=== PATIENT | female | born 1960 | race African-American/Black ===

== ENCOUNTER 2017-07-11 11:05 | Emergency (ER) | payer BC ==
[2017-07-11 12:00] LABS: Absolute Lymphocytes (CBC) 1.4 K/uL (0.7-4.9); Absolute Monocytes 0.7 K/uL (0.1-1.3); Absolute Neutrophil 3.4 K/uL (1.8-8.0); Basophils % 0.4 % (0-1.3); Eosinophils % 3.1 % (0-4.4); Hematocrit 37.6 % (36.0-45.0); Lymphocytes % 24.6 % (15.3-44.8); MCH 26.4 pg (27.0-35.0); MCV 82.2 fL (80-100); MPV 7.6 fL (7.6-11.3); Monocytes % 12.6 % (3.3-12.3); RBC Red Blood Cell Count 4.57 M/uL (3.86-4.86)
[2017-07-11 12:04] LABS: Protime INR 1.13
[2017-07-11 12:09] LABS: Potassium 3.3 mEq/L (3.6-5.0)
[2017-07-11] MEDS ORDERED: ACETAMINOPHEN 500 MG TAB ONE (12:11)
[2017-07-11 12:15] LABS: Albumin 3.8 g/dL (3.2-5.5); Bilirubin Direct 0.1 mg/dL (0-0.2); Bilirubin Total 0.5 mg/dL (0.3-1.2); Magnesium 1.8 mg/dL (1.8-2.5); Protein, Total 7.3 g/dL (6.0-8.3)
--- NOTE | 2017-07-11 12:16 | RAD REPORT ---
EXAM DESCRIPTION: RAD - Chest Single View - 07/11/2017 12:05 pm CLINICAL HISTORY: Syncope, headache COMPARISON: 06/08/2015 FINDINGS: Portable technique limits examination quality. The lungs are grossly clear. The heart is normal in size. No displaced fractures. IMPRESSION: No acute intrathoracic process suspected.
--- NOTE | 2017-07-11 12:17 | RAD REPORT ---
EXAM DESCRIPTION: CT - Head Brain Wo Cont - 07/11/2017 11:50 am CLINICAL HISTORY: Syncope, headache COMPARISON: 06/08/2015 TECHNIQUE: All CT scans are performed using dose optimization technique as appropriate and may inclu de automated exposure control or mA/KV adjustment according to patient size. FINDINGS: No intracranial hemorrhage, hydrocephalus or extra-axial fluid collection.No areas of brai n edema or evidence of midline shift. The paranasal sinuses and mastoids are clear. The calvarium is intact. IMPRESSION: No acute intracranial abnormality.
--- NOTE | 2017-07-11 12:17 | EKG ---
Test Date: 2017-07-11 Test Time: 11:17:52 Patient Access Manager: TERELL MEASUREMENT RESULTS: Intervals: Rate: 75 NM: 142 QRSD: 86 QT: 390 QTc: 435 [place]: P: 63 NM: 142 QRS: 49 T: 56 INTERPRETIVE STATEMENTS: Normal sinus rhythm Normal ECG Compared to ECG 06/08/2015 13:34:21 No significant changes Electronically Signed On 07-11-17 12:16:44 CDT by Jamel Wills
[2017-07-11 12:18] LABS: CKMB Creatine Kinase MB 1.1 ng/ml (0.3-4.0)
[2017-07-11] MEDS ORDERED: NA CHLORIDE 0.9% 1,000 ML ONE (13:04)
[2017-07-11] MEDS ORDERED: LORazepam 2 MG/ML VIAL ONE (13:44)
--- NOTE | 2017-07-11 14:29 | RAD REPORT ---
EXAM DESCRIPTION: MRI - Brain Wo Cont - 07/11/2017 2:12 pm CLINICAL HISTORY: Dizziness, syncope, vertigo. COMPARISON: 07/11/2017 CT head TECHNIQUE: Multi-sequence, multiplanar MR imaging of the brain was performed without contrast. FINDINGS: No intracranial hemorrhage, hydrocephalus or extra-axial fluid collections. No edema or sh ift of midline structures. No findings to suspect brain mass. DWI is negative for acute CVA. Midline structures are normally formed. Mild mucoperiosteal thickening affects the left maxillary antrum, left ethmoid air cells and left fro ntal sinus. The paranasal sinuses and mastoids are otherwise clear. IMPRESSION: No acute or concerning intracranial abnormalities. Mild left-sided paranasal sinus disease.
[2017-07-11] MEDS ORDERED: MECLIZINE HCL 12.5 MG TAB ONE (14:53)
[2017-07-11] MEDS ORDERED: POTASSIUM CL SA 10 MEQ TAB PO ONE (14:53)
--- NOTE | 2017-07-11 15:17 | EDPHYS ---
Physician Documentation [facility] Name: Pippa Cardona Age: 56 yrs Sex: Female : 1960 Arrival Date: 07/11/2017 Time: 11:09 Bed 14 Private MD: ED Physician Reji Renee HPI: 07/11 13:26 This 56 yrs old Black Female presents to ER via EMS with complaints of syncope. kb 13:26 The patient has experienced syncope, lost consciousness. Onset: The symptoms/episode kb began/occurred just prior to arrival. Duration: This was a single episode. Context: the episode(s) was witnessed, by co-worker(s), occurred at work, occurred while the patient was sitting, Just prior to the episode the patient experienced headache. Associated injury: The patient did not suffer any apparent associated injury. Associated signs and symptoms: Pertinent positives: dizziness, headache. Current symptoms: headache, that is moderate. The patient has experienced a previous episode, approximately 2 years ago. The patient has not recently seen a physician. Pt states she was sitting on the floor, developed a headache and then had a syncopal episode. States she gets dizzy when she tries to hold her head up. Had same symptoms 2 years ago, was seen here and followed up with PCP. Symptoms went away without intervention.. 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 - Social history:: Smoking status: Patient/guardian denies using tobacco. ROS: 13:11 Constitutional: Negative for fever, chills, and weight loss, Eyes: Negative for injury, kb pain, redness, and discharge, ENT: Negative for injury, pain, and discharge, Neck: Negative for injury, pain, and swelling, Respiratory: Negative for shortness of breath, cough, wheezing, and pleuritic chest pain, Abdomen/GI: Negative for abdominal pain, nausea, vomiting, diarrhea, and constipation, Back: Negative for injury and pain, : Negative for injury, bleeding, discharge, and swelling, MS/Extremity: Negative for injury and deformity, Skin: Negative for injury, rash, and discoloration. 13:11 Cardiovascular: Positive for chest pain, Negative for edema, orthopnea, palpitations, paroxysmal nocturnal dyspnea. 13:11 Neuro: Positive for syncope, Negative for altered mental status, dizziness, gait disturbance, headache, hearing loss, loss of consciousness, numbness, seizure activity, speech changes, near syncope, tingling, tinnitus, tremor, visual changes, weakness. Exam: 13:11 Constitutional: This is a well developed, well nourished patient who is awake, alert, kb and in no acute distress. Head/Face: Normocephalic, atraumatic. Eyes: Pupils equal round and reactive to light, extra-ocular motions intact. Lids and lashes normal. Conjunctiva and sclera are non-icteric and not injected. Cornea within normal limits. Periorbital areas with no swelling, redness, or edema. ENT: Nares patent. No nasal discharge, no septal abnormalities noted. Tympanic membranes are normal and external auditory canals are clear. Oropharynx with no redness, swelling, or masses, exudates, or evidence of obstruction, uvula midline. Mucous membranes moist. Neck: Trachea midline, no thyromegaly or masses palpated, and no cervical lymphadenopathy. Supple, full range of motion without nuchal rigidity, or vertebral point tenderness. No Meningismus. Chest/axilla: Normal chest wall appearance and motion. Nontender with no deformity. No lesions are appreciated. Cardiovascular: Regular rate and rhythm with a normal S1 and S2. No gallops, murmurs, or rubs. Normal PMI, no JVD. No pulse deficits. Respiratory: Lungs have equal breath sounds bilaterally, clear to auscultation and percussion. No rales, rhonchi or wheezes noted. No increased work of breathing, no retractions or nasal flaring. Abdomen/GI: Soft, non-tender, with normal bowel sounds. No distension or tympany. No guarding or rebound. No evidence of tenderness throughout. Back: No spinal tenderness. No costovertebral tenderness. Full range of motion. Skin: Warm, dry with normal turgor. Normal color with no rashes, no lesions, and no evidence of cellulitis. MS/ Extremity: Pulses equal, no cyanosis. Neurovascular intact. Full, normal range of motion. Vital Signs: 11:14 BP 123 / 75; Pulse 71; Resp 18; Temp 97.8; Pulse Ox 100% on R/A; Weight 83.91 kg; ph Height 5 ft. 3 in. (160.02 cm); 12:17 BP 117 / 74; Pulse 71; Resp 18; Pulse Ox 99% on R/A; ph 13:00 BP 124 / 69 Supine; Pulse 67; ph 13:00 BP 146 / 89 Sitting; Pulse 83; ph 14:00 BP 126 / 78; Pulse 74; Resp 18; Pulse Ox 99% on R/A; ph 15:30 BP 122 / 71; Pulse 72; Resp 16; Temp 97.9; Pulse Ox 99% on R/A; ph 11:14 Body Mass Index 32.77 (83.91 kg, 160.02 cm) ph MDM: 11:15 Patient medically screened. kb 13:11 Data reviewed: vital signs, nurses notes. Data interpreted: Pulse oximetry: on room air kb is 99 %. Interpretation: normal. 13:33 ED course: Discussed diagnostic results with pt. Pt does not want to stay in the [facility] for admission. Will get MRI of the brain. Discussed pt condition and diagnostics with ERP. 13:59 ED course: Pt requested ativan for MRI. Reports claustrophobia . kb 15:12 Counseling: I had a detailed discussion with the patient and/or guardian regarding: the historical points, exam findings, and any diagnostic results supporting the discharge/admit diagnosis, lab results, radiology results, the need for outpatient follow up, a neurologist, to return to the emergency department if symptoms worsen or persist or if there are any questions or concerns that arise at home. 07/11 11:16 Order name: Basic Metabolic Panel; Complete Time: 12:18 kb 07/11 11:16 Order name: BNP; Complete Time: 12:29 kb 07/11 11:16 Order name: CBC with Diff; Complete Time: 12:11 kb 07/11 11:16 Order name: Ckmb; Complete Time: 12:18 kb 07/11 11:16 Order name: CPK; Complete Time: 12:18 kb 07/11 11:16 Order name: LFT's; Complete Time: 12:18 kb 07/11 11:16 Order name: Magnesium; Complete Time: 12:18 kb 07/11 11:16 Order name: PT-INR; Complete Time: 12:11 kb 07/11 11:16 Order name: Ptt, Activated; Complete Time: 12:11 kb 07/11 11:16 Order name: Troponin (emerg Dept Use Only); Complete Time: 12:16 kb 07/11 11:16 Order name: XRAY Chest (1 view); Complete Time: 12:18 kb 07/11 11:25 Order name: CT Head Brain wo Cont; Complete Time: 12:18 kb 07/11 13:26 Order name: MRI - Brain Wo Cont; Complete Time: 14:34 kb 07/11 11:16 Order name: EKG; Complete Time: 11:17 kb 07/11 11:16 Order name: Cardiac monitoring; Complete Time: 12:15 kb 07/11 11:16 Order name: EKG - Nurse/Tech; Complete Time: 12:16 kb 07/11 11:16 Order name: IV Saline Lock; Complete Time: 12:16 kb 07/11 11:16 Order name: Labs collected and sent; Complete Time: 12:16 kb 07/11 11:16 Order name: O2 Per Protocol; Complete Time: 12:16 kb 07/11 11:16 Order name: O2 Sat Monitoring; Complete Time: 12:16 kb 07/11 11:16 Order name: Urine Dipstick-Ancillary (obtain specimen); Complete Time: 14:44 kb 07/11 11:25 Order name: Orthostatics; Complete Time: 13:05 kb Administered Medications: 12:15 Drug: Tylenol 1000 mg Route: PO; ph 13:00 Follow up: Response: No adverse reaction; Pain is decreased ph 14:00 Drug: Ativan 0.5 mg Route: IVP; Site: left antecubital; ph 14:30 Follow up: Response: No adverse reaction ph 15:31 Drug: Potassium Chloride 20 mEq Route: PO; ph 16:00 Follow up: Response: No adverse reaction ph 15:31 Drug: Meclizine 50 mg Route: PO; ph 16:00 Follow up: Response: No adverse reaction ph Disposition: 07/11/17 15:17 Discharged to Home. Impression: Syncope and collapse. - Condition is Stable. - Discharge Instructions: Syncope, [id number]. - Prescriptions for Meclizine 25 mg Oral Tablet - take 1 tablet by ORAL route every 8 hours As needed; 30 tablet. - Medication Reconciliation Form, Thank You Letter, Antibiotic Education, Prescription Opioid Use, Work release form, Family Work Release form. - Follow up: Emergency Department; When: As needed; Reason: Worsening of condition. Follow up: Private Physician; When: 2 - 3 days; Reason: Recheck today's complaints, Continuance of care, Re-evaluation by your physician. Addendum: 07/13/2017 10:50 Co-signature as Attending Physician, Reji Renee MD I agree with the assessment and w a plan of care. Signatures: Dispatcher [employer] EDXiao Serna, HIRA-C HIRA-Tia Nova RN RN Reji Renee MD MD nc Corrections: (The following items were deleted from the chart) 07/11 16:26 15:17 07/11/2017 15:17 Discharged to Home. Impression: Syncope and collapse. Condition ph is Stable. Forms are Medication Reconciliation Form, Thank You Letter, Antibiotic Education, Prescription Opioid Use. Follow up: Emergency Department; When: As needed; Reason: Worsening of condition. Follow up: Private Physician; When: 2 - 3 days; Reason: Recheck today's complaints, Continuance of care, Re-evaluation by your physician. kb
--- NOTE | 2017-07-11 15:17 | ER ---
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 Transition of care: patient was not received from another setting of care. Onset of symptoms was July 11, 2017. Initial Sepsis Screen: Does the patient meet any 2 criteria? No. Patient's initial sepsis screen is negative. Does the patient have a suspected source of infection? No. Patient's initial sepsis screen is negative. Care prior to arrival: Medication(s) given: Normal saline infusion, 500 mL, IV initiated. 20 GA, in the left antecubital area, Glucose check: 100. 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 - Social history:: Smoking status: Patient/guardian denies using tobacco. Screenin:18 Abuse screen: Denies threats or abuse. Denies injuries from another. Nutritional ph screening: No deficits noted. Tuberculosis screening: No symptoms or risk factors identified. Fall Risk Fall in past 12 months (25 points). No secondary diagnosis (0 pts). IV access (20 points). Ambulatory Aid- None/Bed Rest/Nurse Assist (0 pts). Gait- Normal/Bed Rest/Wheelchair (0 pts) Mental Status- Oriented to own ability (0 pts). Total Givens Fall Scale indicates High Risk Score (45 or more points). Fall prevention measures have been instituted. Side Rails Up X 2 Placed Close to Nursing Station Frequent Obs/Assessments Occuring Family Present and informed to notify staff if the need to leave the bedside As available patient and family educated on Fall Prevention Program and Strategies. Assessment: 11:30 General: Appears in no apparent distress. comfortable, well groomed, Behavior is calm, ph cooperative, appropriate for age. Pain: Complains of pain in head and chest. Neuro: Level of Consciousness is awake, obeys commands, Oriented to person, place, time, situation, Reports headache Denies blurred vision diplopia. Cardiovascular: Reports chest pain, fatigue, lightheadedness, syncope, Denies nausea, shortness of breath, vomiting, Capillary refill < 3 seconds Patient's skin is warm and dry. Chest pain quality is pressure, is located in left anterior chest wall began 30 minutes prior to arrival. Respiratory: Airway is patent Respiratory effort is even, unlabored, Respiratory pattern is regular, symmetrical. GI: Reports diarrhea, yesterday Patient currently denies abdominal pain, nausea, vomiting. : No signs and/or symptoms were reported regarding the genitourinary system. Derm: Skin is intact, is healthy with good turgor, Skin is pink, warm \\T\\ dry. Musculoskeletal: Circulation, motion, and sensation intact. Range of motion: intact in all extremities. 12:17 Reassessment: Patient appears in no apparent distress at this time. Patient and/or ph family updated on plan of care and expected duration. Pain level reassessed. Patient is alert, oriented x 3, equal unlabored respirations, skin warm/dry/pink. Pt reports that chest pain has resolved, c/o headache at this time, ERP notified, see MAR. 13:13 Reassessment: Patient appears in no apparent distress at this time. Patient and/or ph family updated on plan of care and expected duration. Pain level reassessed. Patient is alert, oriented x 3, equal unlabored respirations, skin warm/dry/pink. Pt resting quietly at this time, family at bedside. 13:55 Reassessment: Patient appears in no apparent distress at this time. Patient and/or ph family updated on plan of care and expected duration. Pain level reassessed. Patient is alert, oriented x 3, equal unlabored respirations, skin warm/dry/pink. Pt to be taken to MRI, reports that she is claustrophobic, states, " I almost passed out during the cat scan." ERP notified see MAY. 14:02 Reassessment: Patient appears in no apparent distress at this time. Patient and/or ph family updated on plan of care and expected duration. Pain level reassessed. Patient is alert, oriented x 3, equal unlabored respirations, skin warm/dry/pink. Pt assisted to bedside commode, urine sample obtained, taken to MRI via wheelchair. 15:32 Reassessment: Patient appears in no apparent distress at this time. Patient and/or ph family updated on plan of care and expected duration. Pain level reassessed. Patient is alert, oriented x 3, equal unlabored respirations, skin warm/dry/pink. Awaiting completion of IV fluids before discharge Patient denies pain at this time. Vital Signs: 11:14 BP 123 / 75; Pulse 71; Resp 18; Temp 97.8; Pulse Ox 100% on R/A; Weight 83.91 kg; ph Height 5 ft. 3 in. (160.02 cm); 12:17 BP 117 / 74; Pulse 71; Resp 18; Pulse Ox 99% on R/A; ph 13:00 BP 124 / 69 Supine; Pulse 67; ph 13:00 BP 146 / 89 Sitting; Pulse 83; ph 14:00 BP 126 / 78; Pulse 74; Resp 18; Pulse Ox 99% on R/A; ph 15:30 BP 122 / 71; Pulse 72; Resp 16; Temp 97.9; Pulse Ox 99% on R/A; ph 11:14 Body Mass Index 32.77 (83.91 kg, 160.02 cm) ph ED Course: 11:09 Patient arrived in ED. ph 11:14 Triage completed. ph 11:14 Xiao Amezquita FNP-C is PHCP. kb 11:14 Reji Renee MD is Attending Physician. kb 11:17 Arm band placed on. ph 11:18 Patient has correct armband on for positive identification. Placed in gown. Bed in low ph position. Call light in reach. Side rails up X 1. front desk monitor on. Pulse ox on. NIBP on. Warm blanket given. 11:32 EKG done, by ophthalmic tech. reviewed by Xiao SMALL. at1 11:37 Note: resource development director went to get patient, blood draw needed before taking patient for head ct .vr 11:51 CT Head Brain wo Cont In Process Unspecified. EDMS 12:03 Tia Duque, RN is Primary Nurse. ph 12:06 XRAY Chest (1 view) In Process Unspecified. EDMS 12:06 X-ray completed. Portable x-ray completed in exam room. Patient tolerated procedure jf well. 12:19 Initial lab(s) drawn, by me, sent to lab. Maintain EMS IV. Good blood return noted. mh5 Site clean \\T\\ dry. 13:52 Patient moved to MRI via wheelchair. ka 14:03 MRI - Brain Wo Cont In Process Unspecified. EDMS 14:11 MRI completed. Patient tolerated well. Patient moved back from MRI. ka 16:25 No provider procedures requiring assistance completed. IV discontinued, intact, ph bleeding controlled, No redness/swelling at site. Pressure dressing applied. Administered Medications: 12:15 Drug: Tylenol 1000 mg Route: PO; ph 13:00 Follow up: Response: No adverse reaction; Pain is decreased ph 14:00 Drug: Ativan 0.5 mg Route: IVP; Site: left antecubital; ph 14:30 Follow up: Response: No adverse reaction ph 15:31 Drug: Potassium Chloride 20 mEq Route: PO; ph 16:00 Follow up: Response: No adverse reaction ph 15:31 Drug: Meclizine 50 mg Route: PO; ph 16:00 Follow up: Response: No adverse reaction ph Outcome: 15:17 Discharge ordered by . kb 16:26 Patient left the ED. ph 16:26 Discharged to home ambulatory, with family. ph 16:26 Condition: good 16:26 Discharge instructions given to patient, Instructed on discharge instructions, follow up and referral plans. medication usage, Demonstrated understanding of instructions, follow-up care, medications, Prescriptions given X 1. Signatures: Dispatcher [employer] EDMS Xiao Amezquita, STACI INIGUEZ-Denise Pizarro Amanda, incoming inspector EKG Tat1 Tia Duque, RN RN Beverly Salazar Maria [facility] Abdias Martinez
== END 2017-07-11 16:26 | disposition home or self-care (01) ==
LOC: ER 11:05
DX: R55 Syncope and collapse (principal); I10 Essential (primary) hypertension
CPT/HCPCS: 36415; 70450; 70551; 71045; 80048; 80076; 82550; 82553; 83735; 83880; 84484; 85025; 85610; 85730; 93005; 96374; 99285; J7030

== ENCOUNTER 2020-01-06 13:42 | Emergency (ER) | payer BC ==
[2020-01-06 14:22] LABS: Absolute Lymphocytes (CBC) 1.5 K/uL (0.7-4.9); Basophils % 0.4 % (0-1.3); Hematocrit 36.6 % (36.0-45.0); Lymphocytes % 20.8 % (15.3-44.8); MPV 8.1 fL (7.6-11.3); RBC Red Blood Cell Count 4.43 M/uL (3.86-4.86)
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
--- OUTSIDE RECORDS SUMMARY | 2020-01-06 14:23 | XMS REPORT | Summary of Care ---
:1960 Author Organization [facility] Address [address] [place] [address] Care Team Providers Name Role Phone MD Lane Primary Care Provider Reason for Visit Reason Comments Appointment Encounter Details Date Type Department Care Team Description 01/06/2020 Telephone [facility] Family Medicine Beltran Carr MD Appointment - [address] [place] [address] [place] [address] [phone] Allergies No Known Allergiesdocumented as of this encounter (statuses as of 01/06/2020) Medications Medication Sig Dispensed Refills Start Date End Date Status moxifloxacin 0.5 % Place 1 Drop in 3 mL 0 04/28/2018 Active ophthalmic left eye 3 dropsIndications: (three) times Bacterial conjunctivitis daily. of left eye amoxicillin 500 mg Take 1 tablet by 30 tablet 0 12/09/2018 Active tabletIndications: mouth 3 (three) Pharyngitis, unspecified times daily. etiology LISINOPRIL-HYDROCHLOROTH Take 1 tablet by 30 tablet 0 12/21/19 20 Active IAZIDE 20-12.5 mg per mouth once daily tabletIndications: Essential hypertension, benign documented as of this encounter (statuses as of 01/06/2020) Active Problems Problem Noted Date Abdominal or pelvic swelling, mass or lump, unspecifie d site 04/24/2014 Screening breast examination 04/24/2014 Essential hypertension, benign 04/24/2014 Tubal ligation status 04/24/2014 Hypercholesteremia 04/24/2014 Need for Tdap vaccination 04/24/2014 documented as of this encounter (statuses as of 01/06/2020) Social History Tobacco Use Types Packs/Day Years Used Date Never Smoker Smokeless Tobacco: Never Used Alcohol Use Drinks/Week oz/Week Comments No Sex Assigned at Date Recorded Not on file documented as of this encounter Last Filed Vital Signs Not on filedocumented in this encounter Miscellaneous Notes Telephone Encounter - Bella Don MA - 01/06/2020 1:31 PM CDTSpoke with patient and she is currently on her way to the ER for Chest pain. elephone Encounter - Julius Jorge RN - 01/06/2020 1:00 PM CDTRouted to wrong clinic. Contacted sender to send to correct clinic. elephone Encounter - Jamila Rincon - 01/06/2020 12:24 PM CDTPatient states she needed a sooner appointment to follow up chest pain ,please advise patient [phone] signed by Jamila Rincon at 01/06/2020 12:36 PM CDTdocumented in this encounter Plan of Treatment Date Type Specialty Care Team Description 01/10/2020 Office Visit Family Medicine Beltran Sherman MD [address] [place] [address] [phone] Health Maintenance Due Date Last Done Comments HEPATITIS C (HCV) SCREEN 1960 DTaP,Tdap,and Td Vaccines (1 - 1981 Tdap) Breast Cancer Screening 2002 (MAMMOGRAM) COLON CANCER SCREENING ANNUAL 2012 FIT/FOBT COLON CANCER SCREENING FIT DNA 2012 EVERY 3 YEARS COLON CANCER SCREENING 2012 SIGMOIDOSCOPY EVERY 5 YEARS COLONOSCOPY 2012 Colorectal Cancer Screening 2012 Zoster Recombinant Vaccine 2012 (SHINGRIX) (1 of 2) INFLUENZA VACCINE (#1) 2019 PAP SMEAR 01/07/2020 01/06/2017 (Previously completed), 04/22/2014, 12/06/2010 Depression Screening 05/20/2020 05/21/2019 PNEUMOCOCCAL 0-64 YEARS Aged Out No longe r eligible based COMBINED SERIES on patient's age to complete this to [facility] documented as of this encounter Results Not on filedocumented in this encounter Insurance Payer Benefit Plan Subscriber ID Effective Dates Phone Address Type / Group [id number] 2013-Eduardo [phone] [address] PPO/POS [place] t [id number] [place] [address] documented as of this encounter
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
--- OUTSIDE RECORDS SUMMARY | 2020-01-06 14:23 | XMS REPORT | Summary of Care ---
:1960 Author Organization [facility] Address [address] [place] [id number] Care Team Providers Name Role Phone MD Lane Primary Care Provider Reason for Visit Reason Comments Refill Request Encounter Details Date Type Department Care Team Description 12/21/[address] [facility] Beltran Carr MD Refill Request - [address] [place] [address] [place] [phone] Allergies No Known Allergiesdocumented as of this encounter (statuses as of 12/21/2019) Medications Medication Sig Dispensed Refills Start Date End Date Status moxifloxacin 0.5 % Place 1 Drop 3 mL 0 04/28/2018 Active ophthalmic in left eye dropsIndications: 3 (three) Bacterial times daily. conjunctivitis of left eye amoxicillin 500 mg Take 1 30 tablet 0 12/09/2018 Active tabletIndications: tablet by Pharyngitis, mouth 3 unspecified etiology (three) times daily. LISINOPRIL-HYDROCHLOR Take 1 30 tablet 0 12/21/2019 Active OTHIAZIDE 20-12.5 mg tablet by per mouth once tabletIndications: daily Essential hypertension, benign LISINOPRIL-HYDROCHLOR Take 1 90 tablet 0 09/22/2019 020 Discontinued OTHIAZIDE 20-12.5 mg tablet by per mouth once tabletIndications: daily Essential hypertension, benign documented as of this encounter (statuses as of 12/21/2019) Active Problems Problem Noted Date Abdominal or pelvic swelling, mass or lump, unspecifie d site 04/24/2014 Screening breast examination 04/24/2014 Essential hypertension, benign 04/24/2014 Tubal ligation status 04/24/2014 Hypercholesteremia 04/24/2014 Need for Tdap vaccination 04/24/2014 documented as of this encounter (statuses as of 12/21/2019) Social History Tobacco Use Types Packs/Day Years Used Date Never Smoker Smokeless Tobacco: Never Used Alcohol Use Drinks/Week oz/Week Comments No Sex Assigned at Date Recorded Not on file documented as of this encounter Last Filed Vital Signs Not on filedocumented in this encounter Plan of Treatment Health Maintenance Due Date Last Done Comments [...] on patient's age to complete this to pic documented as of this encounter Results Not on filedocumented in this encounter Visit Diagnoses Diagnosis Essential hypertension, benign documented in this encounter Insurance Payer Benefit Plan Subscriber ID Effective Dates Phone Address Type / Group BCBS OF BCBS [facility] [id number] 2013-Eduardo [phone] [address] [place] P[place] t [id number] [place] [address] documented as of this encounter
[2020-01-06 14:43] LABS: ALT/SGPT 18 U/L (12-78); AST/SGOT 16 U/L (15-37); Albumin 3.6 g/dL (3.4-5.0); Alkaline Phosphatase 60 U/L (45-117); BUN Blood Urea Nitrogen 12 mg/dL (7-18); Bicarbonate 31 mmol/L (21-32); Bilirubin Direct < 0.1 mg/dL (0-0.2); Bilirubin Total 0.3 mg/dL (0.2-1.0); Glucose Level 94 mg/dL (74-106); NT PRO-BNP 59 pg/mL (<125); Potassium 3.2 mmol/L (3.5-5.1); Protein, Total 7.7 g/dL (6.4-8.2); Sodium Level 142 mmol/L (136-145); Troponin (Emerg Dept Use Only) < 0.02 ng/mL (0.0-0.045)
[2020-01-06 14:53] LABS: Protime INR 1.05
--- NOTE | 2020-01-06 15:09 | RAD REPORT ---
EXAM DESCRIPTION: RAD - Chest Single View - 01/06/2020 2:57 pm CLINICAL HISTORY: CHEST PAIN COMPARISON: Portable July 2017 TECHNIQUE: AP portable chest image was obtained 01/06/2020 2:57 pm . FINDINGS: Lungs are clear. Heart size is upper normal accentuated by a slightly more shallow inspira tory effort and a more lordotic position. No vascular engorgement. Acute failure or volume overload a re not suspected. No measurable pleural effusion and no pneumothorax. No acute bony abnormality seen. No acute aortic findings suspected. IMPRESSION: No acute cardiopulmonary process. Enlargement of the cardiac silhouette is believed be the affects of portable imaging, shallow inspira tion and slight lordotic positioning.
[2020-01-06] MEDS ORDERED: ONDANSETRON 4 MG/2 ML VIAL ONE (15:21)
[2020-01-06] MEDS ORDERED: MORPHINE 2 MG/ML SYR ONE (15:21)
[2020-01-06] MEDS ORDERED: TRAMADOL HCL 50 MG TAB ONE (15:26)
--- NOTE | 2020-01-06 17:02 | EDPHYS ---
Physician Documentation [facility] Name: Pippa Cardona Age: 59 yrs Sex: Female : 1960 Arrival Date: 01/06/2020 Time: 13:44 Bed 6 Private MD: ED Physician Caio Estrada HPI: 01/05 14:04 This 59 yrs old Black Female presents to ER via Ambulatory with complaints of Chest jmm Pain. 14:04 The patient or guardian reports chest pain that is located primarily in the anterior [facility] chest wall. Onset: gradually. The pain does not radiate. Associated signs and symptoms: Pertinent negatives: cough, shortness of breath, syncope. The chest pain is described as sharp. Duration: The patient or guardian reports a single episode, that is still ongoing. Modifying factors: The symptoms are alleviated by remaining still, the symptoms are aggravated by movement, palpation of area. This is a 59 year old female with a history of htn that presents to the ED with complaints of anterior chest pain which does not radiate. This occurred while the patient was bending over to change a diaper. Pain has been constant since. Denies history of CAD but does have a family history of CAD. Historical: - Allergies: 13:49 No Known Allergies; sv - PMHx: 13:49 Hypertension; sv - PSHx: 13:49 L knee; sv - Immunization history:: Adult Immunizations. - Social history:: Smoking status: . ROS: 14:04 Constitutional: Negative for fever, chills, and weight loss. jm 14:04 Respiratory: Negative for shortness of breath, cough, wheezing, and pleuritic chest pain, Neuro: Negative for headache, weakness, numbness, tingling, and seizure. 14:04 Cardiovascular: Positive for chest pain. 14:04 All other systems are negative. Exam: 14:04 Constitutional: This is a well developed, well nourished patient who is awake, alert, jmm and in no acute distress. Head/Face: atraumatic. Eyes: EOMI, no conjunctival erythema appreciated ENT: Moist Mucus Membranes Neck: Trachea midline, Supple Cardiovascular: Regular rate and rhythm. No edema appreciated Respiratory: Normal respirations, no respiratory distress appreciated 14:04 Abdomen/GI: Non distended, soft Back: Normal ROM Skin: General appearance color normal MS/ Extremity: Moves all extremities, no obvious deformities appreciated, no edema noted to the lower extremities Neuro: Awake and alert, normal gait Psych: Behavior is normal, Mood is normal, Patient is cooperative and pleasant 14:04 Chest/axilla: Palpation: tenderness, that is moderate, of the xyphoid area and mid-sternal area, that totally reproduces the patient's complaints. 15:22 ECG was reviewed by the Attending Physician. [facility] Vital Signs: 13:50 BP 125 / 63; Pulse 68; Resp 24; Temp 97.5(TE); Pulse Ox 100% ; Weight 95.25 kg; Height sv 5 ft. 3 in. (160.02 cm); 14:16 BP 128 / 67; Pulse 65; Resp 20; Pulse Ox 100% ; ll1 15:16 BP 123 / 62; Pulse 64; Resp 20; Pulse Ox 100% on R/A; Pain 9/10; ll1 16:16 BP 117 / 72; Pulse 63; Resp 18; Pulse Ox 100% ; ll1 17:18 BP 122 / 74; Pulse 63; Resp 18; Pulse Ox 100% ; Pain 0/10; ll1 13:50 Body Mass Index 37.20 (95.25 kg, 160.02 cm) sv MDM: 14:04 Patient medically screened. [facility] 16:57 Data reviewed: vital signs, nurses notes. Counseling: I had a detailed discussion with [facility] the patient and/or guardian regarding: the historical points, exam findings, and any diagnostic results supporting the discharge/admit diagnosis, lab results, radiology results, the need for outpatient follow up, to return to the emergency department if symptoms worsen or persist or if there are any questions or concerns that arise at home. ED course: Patient is alert and non toxic in appearance in the ED. Heart Score is 2. Pain is reproduceable. D-dimer is WNL. I do not suspect PE. Patient is advised to follow up with pcp and otherwise given strict return precautions. . 01/05 14:05 Order name: Basic Metabolic Panel; Complete Time: 15: [facility] 01/05 14:05 Order name: CBC with Diff; Complete Time: 15: [facility] 01/05 14:05 Order name: LFT's; Complete Time: 15: [facility] 01/05 14:05 Order name: Magnesium; Complete Time: 15: [facility] 01/05 14:05 Order name: NT PRO-BNP; Complete Time: 15:07 [facility] 01/05 14:05 Order name: PT-INR; Complete Time: 15:07 [facility] 01/05 13:49 Order name: EKG; Complete Time: 13:50 sv 01/05 13:49 Order name: EKG - Nurse/Tech; Complete Time: 13:49 sv 01/05 14:05 Order name: Troponin (emerg Dept Use Only); Complete Time: 15:07 [facility] 01/05 14:05 Order name: XRAY Chest (1 view); Complete Time: 15:11 [facility] 01/05 15:32 Order name: D-Dimer; Complete Time: 16:49 [facility] 01/05 14:05 Order name: Cardiac monitoring; Complete Time: 15:16 [facility] 01/05 14:05 Order name: IV Saline Lock; Complete Time: 15:16 [facility] 01/05 14:05 Order name: Labs collected and sent; Complete Time: 15:16 [facility] 01/05 14:05 Order name: O2 Per Protocol; Complete Time: 15: [facility] 01/05 14:05 Order name: O2 Sat Monitoring; Complete Time: 15:16 jm EC:22 Rate is 71 beats/min. Rhythm is regular. QRS [place] is Normal. WI interval is normal. QRS jmm interval is normal. QT interval is normal. No Q waves. T waves are Normal. No ST changes noted. Reviewed by me. Administered Medications: 15:15 Not Given (Patient Refused): morphine 2 mg IVP once; (PAIN>8) RASS on ADMN: Combtv4, ll1 Very Agttd3, Agttd2, Rstlss1, AlertClm0, Drwsy-1, LtSdtn-2, ModSdtn-3, DpSdtn-4, UnArsble-5 x2 15:15 Not Given (Patient Refused): Zofran (Ondansetron) 4 mg IVP once; over 2 minutes ll1 15:15 Drug: traMADol 50 mg {Note: rass 0.} Route: PO; ll1 17:19 Follow up: Response: No adverse reaction; Pain is decreased; RASS: Alert and Calm (0) ll1 Disposition: 01/06 15:53 Co-signature as Attending Physician, Caio Estrada MD I agree with the assessment and kdr plan of care. Disposition: 01/06/20 17:00 Discharged to Home. Impression: Chest pain, unspecified. - Condition is Stable. - Discharge Instructions: Nonspecific Chest Pain. - Prescriptions for orphenadrine citrate 100 mg Oral Tablet Sustained Release - take 1 tablet by ORAL route 2 times per day As needed; 20 tablet. - Medication Reconciliation Form, Thank You Letter, Antibiotic Education, Prescription Opioid Use, Work release form form. - Follow up: Private Physician; When: 2 - 3 days; Reason: Recheck today's complaints, Continuance of care, Re-evaluation by your physician. Signatures: Dispatcher [employer] [place] Saba, RN RN Caio Ambriz MD MD kdr Mickail, Joel, PA PA jmm Lewis, Lynsay RN RN ll1 Corrections: (The following items were deleted from the chart) 01/05 14:15 14:05 EKG - Nurse/Tech ordered. [facility] 17:20 17:00 01/06/2020 17:00 Discharged to Home. Impression: Chest pain, unspecified. ll1 Condition is Stable. Forms are Medication Reconciliation Form, Thank You Letter, Antibiotic Education, Prescription Opioid Use. Follow up: Private Physician; When: 2 - 3 days; Reason: Recheck today's complaints, Continuance of care, Re-evaluation by your physician. [facility]
--- NOTE | 2020-01-06 17:02 | ER ---
Nurse's Notes [facility] Name: Pippa Cardona Age: 59 yrs Sex: Female : 1960 Arrival Date: 01/06/2020 Time: 13:44 Bed 6 Private MD: Diagnosis: Chest pain, unspecified Presentation: 01/05 13:48 Chief complaint: Patient states: midsternal CP that started today. Reports that the EMS sv came to see her at her job, gave her ASA and pain improved some. Reports that the pain started again. Denies SOB. Coronavirus screen: Client denies travel out of the [place] in the last 14 days. At this time, the client does not indicate any symptoms associated with coronavirus-19. Ebola Screen: No symptoms or risks identified at this time. Risk Assessment: Do you want to hurt yourself or someone else? Patient reports no desire to harm self or others. Onset of symptoms was January 06, 2020. 13:48 Method Of Arrival: Ambulatory sv 13:48 Acuity: ZOEY 3 sv 13:50 Initial Sepsis Screen: Does the patient meet any 2 criteria? RR > 20 per min. No. sv Patient's initial sepsis screen is negative. Does the patient have a suspected source of infection? No. Patient's initial sepsis screen is negative. Historical: - Allergies: 13:49 No Known Allergies; sv - PMHx: 13:49 Hypertension; sv - PSHx: 13:49 L knee; sv - Immunization history:: Adult Immunizations. - Social history:: Smoking status: . Screenin:19 Abuse screen: Denies threats or abuse. Nutritional screening: No deficits noted. ll1 Tuberculosis screening: No symptoms or risk factors identified. Fall Risk IV access (20 points). Total Givens Fall Scale indicates No Risk (0-24 pts). Assessment: 14:17 General: Appears in no apparent distress. Behavior is calm, cooperative, appropriate ll1 for age. Pain: Complains of pain in chest Quality of pain is described as aching, Pain began 1 day ago. Pain: Pain does not radiate. Neuro: No deficits noted. Cardiovascular: Reports chest pain, Heart tones S1 S2 Capillary refill < 3 seconds Clubbing of nail beds is absent JVD Patient's skin is warm and dry. Pulses are all present. Rhythm is sinus rhythm Chest pain is described as mild, quality is pressure, is located in substernal area began 1 day ago episodes are intermittent. Respiratory: Airway is patent Trachea midline Respiratory effort is even, unlabored, Respiratory pattern is regular, symmetrical, Breath sounds are clear bilaterally. Denies cough, shortness of breath. GI: No deficits noted. 15:15 Reassessment: Patient and/or family updated on plan of care and expected duration. Pain ll1 level reassessed. Patient is alert, oriented x 3, equal unlabored respirations, skin warm/dry/pink. 16:15 Reassessment: Patient and/or family updated on plan of care and expected duration. Pain ll1 level reassessed. Patient is alert, oriented x 3, equal unlabored respirations, skin warm/dry/pink. 17:15 Reassessment: Patient and/or family updated on plan of care and expected duration. Pain ll1 level reassessed. Patient is alert, oriented x 3, equal unlabored respirations, skin warm/dry/pink. Vital Signs: 13:50 BP 125 / 63; Pulse 68; Resp 24; Temp 97.5(TE); Pulse Ox 100% ; Weight 95.25 kg; Height sv 5 ft. 3 in. (160.02 cm); 14:16 BP 128 / 67; Pulse 65; Resp 20; Pulse Ox 100% ; ll1 15:16 BP 123 / 62; Pulse 64; Resp 20; Pulse Ox 100% on R/A; Pain 9/10; ll1 16:16 BP 117 / 72; Pulse 63; Resp 18; Pulse Ox 100% ; ll1 17:18 BP 122 / 74; Pulse 63; Resp 18; Pulse Ox 100% ; Pain 0/10; ll1 13:50 Body Mass Index 37.20 (95.25 kg, 160.02 cm) sv Vitals: 16:16 Cardiac Rhythm Assessment Regular Sinus rhythm. ll1 ED Course: 13:44 Patient arrived in ED. rg4 13:47 Arm band placed on. sv 13:48 Triage completed. sv 13:50 Kiran Aguiar PA is PHCP. jmm 13:50 Caio Estrada MD is Attending Physician. jmm 13:51 EKG done, by ED staff, reviewed by Caio Estrada MD. sv 13:52 Noe, Lynsay, RN is Primary Nurse. ll1 14:05 Inserted saline lock: 20 gauge in left antecubital area, using aseptic technique. Blood ll1 collected. 14:19 Patient has correct armband on for positive identification. Bed in low position. Call ll1 light in reach. Side rails up X2. secured entrance monitor on. Pulse ox on. NIBP on. 14:19 Patient maintains SpO2 saturation greater than 95% on room air. ll1 14:57 XRAY Chest (1 view) In Process Unspecified. EDMS 17:19 IV discontinued, intact, bleeding controlled, No redness/swelling at site. Pressure ll1 dressing applied. 17:19 No provider procedures requiring assistance completed. ll1 Administered Medications: 15:15 Not Given (Patient Refused): morphine 2 mg IVP once; (PAIN>8) RASS on ADMN: Combtv4, ll1 Very Agttd3, Agttd2, Rstlss1, AlertClm0, Drwsy-1, LtSdtn-2, ModSdtn-3, DpSdtn-4, UnArsble-5 x2 15:15 Not Given (Patient Refused): Zofran (Ondansetron) 4 mg IVP once; over 2 minutes ll1 15:15 Drug: traMADol 50 mg {Note: rass 0.} Route: PO; ll1 17:19 Follow up: Response: No adverse reaction; Pain is decreased; RASS: Alert and Calm (0) ll1 Outcome: 17:00 Discharge ordered by . stu 17:20 Discharged to home ambulatory. ll1 17:20 Condition: stable 17:20 Discharge instructions given to patient, Instructed on discharge instructions, follow up and referral plans. no drinking with medication, medication usage, Demonstrated understanding of instructions, follow-up care, medications, Prescriptions given X 1. 17:20 Patient left the ED. ll1 Signatures: Dispatcher [employer] EDMS [place] Mcclellan RN RN Kiran Alvarez PA PA jmm Garcia, Rubi rg4 Omer Liu RN RN 1 Corrections: (The following items were deleted from the chart) 13:51 13:48 Chief complaint: Patient states: midsternal CP that started today. Reports that sv the EMS came to see her at her job, gave her ASA and pain improved some. Reports that the pain started again. sv 13:54 13:50 Resp 24bpm; 95.25 kg; Height 5 ft. 3 in.; BMI: 37.2; sv sv 13:50 Pulse 68bpm; Resp 24bpm; Pulse Ox 100%; Temp 97.5F Temporal; 95.25 kg; Height 5 sv ft. 3 in.; BMI: 37.2; sv
[2020-01-06 17:26] VITALS: TEMP 97.5; O2SAT 100
[2020-01-06 17:32] VITALS: BP 122/74
--- NOTE | 2020-01-07 17:53 | EKG ---
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
== END 2020-01-06 17:20 | disposition home or self-care (01) ==
LOC: ER 13:42
DX: R07.9 Chest pain, unspecified (principal); I10 Essential (primary) hypertension; Z82.49 Family history of ischemic heart disease and other diseases of the circulatory system
CPT/HCPCS: 36415; 71045; 80048; 80076; 83735; 83880; 84484; 85025; 85379; 85610; 93005; 99285; J2270; J2405

== ENCOUNTER 2021-09-03 22:16 | Emergency (ER) | payer BC ==
--- OUTSIDE RECORDS SUMMARY | 2021-09-03 22:19 | XMS REPORT | Continuity of Care Document ---
:1960 Author Organization [facility] t Address [address] [place] [address] Care Team Providers Name Role Phone Lane SANCHEZ Primary Care Physician Renato RN, T Attending Clinician Unavailable RUPERT Attending Clinician Unavailable Rupert PIANO REFINISHER Attending Clinician Jose Carlos SANCHEZ Attending Clinician Lane SANCHEZ Attending Clinician Vini SANCHEZ, Obiefuna Attending Clinician [phone] Doctor Unassigned, Name Attending Clinician Unavailable Payers Payer Name Policy Type Policy Number Effective Date Expiration Date S ource Problems Condition Condition Condition Status Onset Resolution Last Treating Co mments Source Name Details Category Date Date Treatment Clinician Date Hyperchole Hyperchole Disease Active U nivers steremia steremia 2-15 ity of 00:00: [place] 00 [facility] Branch Need for Need for Disease Active Unive rs Tdap Tdap 2-15 [place] Abdominal Abdominal Disease Active Uni vers or pelvic or pelvic 2-15 [place] of [place], [place] 00 Medical lump, lump, Branch unspecifie unspecifie d site d site Screening Screening Disease Active Uni vers breast breast 2-15 [place] of exam[place] [facility] Essential Essential Disease Active Uni vers hypertensi hypertensi 2-15 it y of on, benign on, benign 00:00: [address] Tubal Tubal Disease Active Univers ligation ligation 2-15 ity of status status 00:00: [address] Allergies, Adverse Reactions, Alerts Allergy Allergy Status Severity Reaction(s) Onset Inactive Treating Comm ents Source Name Type Date Date Clinician NO KNOWN Drug Active Univers ALLERGIE Class ity of S [facility] Social History Social Habit Start Date Stop Date Quantity Comments Source Exposure to 2021-08-23 2021-09-02 Not sure [facility]-CoV-2 00:00:00 13:33:00 [facility] (event) Branch Alcohol intake 2021-09-02 2021-09-02 Current [facility] 00:00:00 00:00:00 non-drinker of [facility] alcohol Branch (finding) Tobacco use and 2014-04-22 2014-04-22 Never used Universit y of exposure 00:00:00 00:00:00 [facility] Sex Ass[birth year] Universit y of 00:00:00 00:00:00 [facility] Smoking Status Start Date Stop Date Source Never smoker [facility] Medications Ordered Filled Start Stop Current Ordering Indication Dosage Frequency Signature Comments Components Source Medication Medication Date Date Medication? Clinician (SIG) Name Name lisinopriL- Yes [id number] TAKE 1 U nivers hydrochloro 2-07 TABLET BY ity of thiazide 00:00: MOUTH ONCE [place] as 20-12.5 mg 00 DAILY . Medica l [facility] F[facility] REFILLS lisinopriL- Yes [id number] TAKE 1 U nivers hydrochloro 2-07 TABLET BY ity of thiazide 00:00: MOUTH ONCE [place] as 20-12.5 mg 00 DAILY . Medica l per tablet [facility] T REQUIRED FOR FUTURE REFILLS lisinopriL- Yes [id number] TAKE 1 U nivers hydrochloro 2-07 TABLET BY ity of thiazide 00:00: MOUTH ONCE [place] as 20-12.5 mg 00 DAILY . Medica l [facility] REQUIRED FOR FUTURE REFILLS lisinopriL- 2020-03- No [id number] TAKE 1 [facility] [place] hydrochloro 1-18 04-16 TABLET BY it y of thiazide 00:00: [place]:00 [place] 20-12.5 mg 00 :00 DAILY . Medica l per tablet [facility] T REQUIRED FOR FUTURE REFILLS Vital Signs Vital Name Observation Time Observation Value Comments Source Systolic blood 2021-09-02 18:34:00 125 mm[Hg] Univer sity of [facility] Diastolic blood 2021-09-02 18:34:00 81 mm[Hg] Unive rsity of [facility] Heart rate 2021-09-02 18:34:00 84 /min Universi ty of [facility] Body temperature 2021-09-02 18:34:00 37.28 [facility] Respiratory rate 2021-09-02 18:34:00 16 /min Univ ersity of [facility] Body height 2021-09-02 18:34:00 160 cm Universi ty of [facility] Body weight 2021-09-02 18:34:00 92.534 kg [facility] [place] [facility] BMI 2021-09-02 18:34:00 36.14 kg/m2 [facility] [place] [facility] Oxygen saturation in 2021-09-02 18:34:00 97 /min University of Arterial blood by [employer] Pulse oximetry Branch Systolic blood 2021-04-16 19:50:00 117 mm[Hg] Univer sity of [facility] Diastolic blood 2021-04-16 19:50:00 77 mm[Hg] Unive rsity of [facility] Heart rate 2021-04-16 19:50:00 72 /min [facility] [place] [facility] Body height 2021-04-16 19:50:00 160 cm [facility] [place] [facility] Body weight 2021-04-16 19:50:00 94.212 kg Universi ty of [facility] Branch BMI 2021-04-16 19:50:00 36.79 kg/m2 [facility] [place] [facility] Oxygen saturation in 2021-04-16 19:50:00 98 /min University of Arterial blood by [place] [employer] Pulse oximetry Branch Procedures This patient has no known procedures. Encounters Start End Encounter Admission Attending Care Care Encounter Source Date/Time Date/Time Type Type Clinicians Facility Department ID 2021-09-03 2021-09-03 Telephone ELEAZAR Gross [id number] Univers 00:00:00 00:00:00 Bobby TORRES [id number] ity of [facility] [id number] Hector as [id number] [address] 2021-09-02 2021-09-02 Outpatient R RUPERT [facility] [id number] Univers 13:40:00 13:49:12 ZAHIDA ity [facility] 2021-09-02 2021-09-02 Urgent Rupert [facility] [id number] Univers 13:40:00 13:49:12 [facility] [id number] ity of [place] [id number] Hector as NORY?BLEA [id number] [facility] [address] MEDICAL OFFICE BUILDING 2021-09-02 2021-09-02 Outpatient R [facility] [id number] Univers 13:40:00 13:40:00 [id number] ity [facility] 2021-04-16 2021-04-[address] [facility] [id number] Univers 14:30:00 14:45:[address] [facility] [id number] it y of [place] [id number] Hector as NORY?BLEA [id number] [address] MEDICAL OFFICE BUILDING 2020-01-06 2020-01-[address] [facility] [id number] 00:00:00 00:00:00 [facility] [id number] [place] [id number] Professio [phone] [place] [address] Office [address] One 2019-12-21 2019-12-[address] [facility] [id number] 00:00:00 00:00:00 [facility] [id number] [place] [id number] Professio [id number] [place] [address] [address] One 2019-09-20 2019-09-20 Anastasia Sherman [facility] [id number] 00:00:00 00:00:00 [facility] [id number] [place] [id number] Professio [id number] [place] [address] One 2019-06-02 2019-06-02 Anastasia Sherman [facility] [id number] 00:00:00 00:00:00 [facility] [id number] [place] [id number] Professio [id number] n[place] 044 Office [address] One 2019-05-21 2019-05-21 [facility] [id number] 18:33:25 20:24:58 [facility] [id number] [facility] [id number] Specialti [id number] [address] [place] 2019-05-21 2019-05-21 Orders Doctor ELEAZAR [id number] 00:00:00 00:00:00 Only Unassigned, MELISSA [id number] [place] [facility] [id number] [id number] 2018-11-16 2018-11-16 Anastasia Sherman [facility] [id number] 00:00:00 00:00:00 [facility] [id number] [place] [id number] Professio [phone] [place] [address] Office [address] One Results This patient has no known results.
[2021-09-03] MEDS ORDERED: ACETAMINOPHEN 325 MG TABLET ONE (23:08)
--- NOTE | 2021-09-04 00:07 | ER ---
Nurse's Notes [facility] Name: Ppipa Cardona Age: 60 yrs Sex: Female : 1960 Arrival Date: 09/03/2021 Time: 22:21 Bed 13 Private MD: Diagnosis: Coronavirus infection, unspecified Presentation: 09/03 22:32 Chief complaint: Patient states: I went to the urgent care yesterday with a cough and kd3 congestion. they did a co vid swab and called me with the results today and I was positive. they told me that if I feel weird at all to come to the hospital. well I was eating soup earlier today and I felt some heart burn. it has gone away but I decided to come in to just get checked out. Coronavirus screen: Vaccine status:. Ebola Screen: No symptoms or risks identified at this time. Initial Sepsis Screen: Does the patient meet any 2 criteria? No. Patient's initial sepsis screen is negative. Does the patient have a suspected source of infection? No. Patient's initial sepsis screen is negative. Risk Assessment: Do you want to hurt yourself or someone else? Patient reports no desire to harm self or others. Onset of symptoms was September 03, 2021. 22:32 Method Of Arrival: Ambulatory kd3 22:32 Acuity: ZOEY 3 kd3 Triage Assessment: 22:37 General: Appears in no apparent distress. Behavior is calm, cooperative. Pain: Denies kd3 pain. GI: No deficits noted. Historical: - Home Meds: 22:37 lisinopril Oral [Active]; kd3 - PMHx: 22:37 Hypertension; kd3 - Immunization history:: Adult Immunizations up to date, Client reports receiving the 2nd dose of the Covid vaccine. - Social history:: Smoking status: unknown. Screenin:37 Abuse screen: Denies threats or abuse. Denies injuries from another. Nutritional kd3 screening: No deficits noted. Tuberculosis screening: No symptoms or risk factors identified. Fall Risk None identified. Assessment: 23:30 GI: Bowel sounds present X 4 quads. Abd is soft and non tender. ke1 23:38 Reassessment: Patient appears in no apparent distress at this time. No changes from ke1 previously documented assessment. Patient is alert, oriented x 3, equal unlabored respirations, skin warm/dry/pink. Vital Signs: 22:32 BP 138 / 76; Pulse 85; Resp 18; Temp 100.4; Pulse Ox 100% on R/A; Weight 92.08 kg; kd3 Height 5 ft. 4 in. (162.56 cm); Pain 0/10; 09/04 00:10 BP 132 / 74; Pulse 80; Resp 17; Temp 99.9; Pulse Ox 100% ; Pain 0/10; ke1 09/03 22:32 Body Mass Index 34.84 (92.08 kg, 162.56 cm) kd3 ED Course: 09/03 22:21 Patient arrived in ED. ja2 22:30 Xiao Amezquita [facility]-C [facility] kb 22:30 Caio Estrada MD is Attending Physician. kb 22:37 Triage completed. kd3 22:37 Patient has correct armband on for positive identification. kd3 22:37 No provider procedures requiring assistance completed. kd3 22:57 Liss Bradshaw, RN is Primary Nurse. ke1 23:23 Chest Single View XRAY In Process Unspecified. EDMS 09/04 00:09 Patient did not have IV access during this emergency room visit. ke1 Administered Medications: 09/03 23:15 Drug: Tylenol 650 mg Route: PO; ke1 09/04 00:08 Follow up: Response: No adverse reaction ke1 Medication: 00:09 VIS not applicable for this client. ke1 Outcome: 00:06 Discharge ordered by . kb 00:09 Discharged to home ambulatory. ke1 00:09 Condition: good 00:09 Discharge instructions given to patient. 00:45 Patient left the ED. ke1 Signatures: Dispatcher [employer] EDDE Xiao Amezquita FNP-C FNP-Ckb Alexander, Jessica 2 Kirstin Soni RN RN 3 Liss Bradshaw, DANIELTIO RN ke1
--- NOTE | 2021-09-04 00:07 | EDPHYS ---
Physician Documentation [facility] Name: Pippa Cardona Age: 60 yrs Sex: Female : 1960 Arrival Date: 09/03/2021 Time: 22:21 Bed 13 Private MD: ED Physician Caio Estrada HPI: 09/03 23:38 This 60 yrs old Black Female presents to ER via Ambulatory with complaints of Covid+, kb Abdominal Pain, Nausea, Chest Pain. 23:38 The patient presents with abdominal pain in the upper abdomen. Onset: The kb symptoms/episode began/occurred today. The symptoms do not radiate. Associated signs and symptoms: none. The symptoms are described as burning. Modifying factors: The symptoms are alleviated by nothing, the symptoms are aggravated by nothing. Severity of pain: At its worst the pain was mild in the emergency department the pain has resolved. The patient has not experienced similar symptoms in the past. The patient has not recently seen a physician. Pt states she was swabbed for covid yesterday and today got a positive result. States she ate some soup and felt some burning to abd with a sharp pain under left lower ribs that lasted a very short time. States she was told if she had anything happen that she needed to come to the ER immediately because of the covid. States symptoms have resolved now. "I feel good.". Historical: - Home Meds: 22:37 lisinopril Oral [Active]; kd3 - PMHx: 22:37 Hypertension; kd3 - Immunization history:: Adult Immunizations up to date, Client reports receiving the 2nd dose of the Covid vaccine. - Social history:: Smoking status: unknown. ROS: 23:37 Constitutional: Negative for fever, chills, and weight loss. kb 23:37 All other systems are negative. Exam: 23:36 Constitutional: This is a well developed, well nourished patient who is awake, alert, kb and in no acute distress. Head/Face: Normocephalic, atraumatic. ENT: Moist Mucous membranes Chest/axilla: Normal chest wall appearance and motion. Cardiovascular: Regular rate and rhythm with a normal S1 and S2. No gallops, murmurs, or rubs. No pulse deficits. Respiratory: Respirations even and unlabored. No increased work of breathing. Talking in full sentences Abdomen/GI: Soft, non-tender. No distention Skin: Warm, dry with normal turgor. Normal color. MS/ Extremity: Pulses equal, no cyanosis. Neurovascular intact. Full, normal range of motion. Neuro: Awake and alert, GCS 15, oriented to person, place, time, and situation. Moves all extremities. Normal gait. Psych: Awake, alert, with orientation to person, place and time. Behavior, mood, and affect are within normal limits. 23:36 ECG was reviewed by the Attending Physician. Vital Signs: 22:32 BP 138 / 76; Pulse 85; Resp 18; Temp 100.4; Pulse Ox 100% on R/A; Weight 92.08 kg; kd3 Height 5 ft. 4 in. (162.56 cm); Pain 0/10; 09/04 00:10 BP 132 / 74; Pulse 80; Resp 17; Temp 99.9; Pulse Ox 100% ; Pain 0/10; ke1 09/03 22:32 Body Mass Index 34.84 (92.08 kg, 162.56 cm) kd3 MDM: 09/03 22:30 Patient medically screened. kb 23:37 Data reviewed: vital signs, nurses notes. Data interpreted: Pulse oximetry: on room air kb is 100 %. Interpretation: normal. 23:42 Counseling: I had a detailed discussion with the patient and/or guardian regarding: the kb historical points, exam findings, and any diagnostic results supporting the discharge/admit diagnosis, radiology results, the need for outpatient follow up, a family practitioner, to return to the emergency department if symptoms worsen or persist or if there are any questions or concerns that arise at home. 09/03 22:37 Order name: Chest Single View XRAY kb 09/03 22:37 Order name: EKG; Complete Time: 22:39 kb 09/03 22:37 Order name: EKG - Nurse/Tech; Complete Time: 23:35 kb EC:36 Rate is 66 beats/min. Rhythm is regular. QRS [place] is Normal. [place] interval is normal at kb 160 msec. QRS interval is normal at 90 msec. QT interval is normal at 410 msec. Administered Medications: 23:15 Drug: Tylenol 650 mg Route: PO; ke1 09/04 00:08 Follow up: Response: No adverse reaction ke1 Disposition: 01:14 Co-signature as Attending Physician, Caio Estrada MD I agree with the assessment and kdr plan of care. Disposition Summary: 09/04/21 00:06 Discharge Ordered Location: Home kb Condition: Stable kb Diagnosis - Coronavirus infection, unspecified kb Followup: kb - With: Emergency Department - When: As needed - Reason: Worsening of condition Followup: kb - With: Private Physician - When: 2 - 3 days - Reason: Recheck today's complaints, Continuance of care, Re-evaluation by your physician Discharge Instructions: - Discharge Summary Sheet kb - Viral Respiratory Infection, [id number] kb - COVID-19 kb Forms: - Medication Reconciliation Form kb - Thank You Letter kb - Antibiotic Education kb - Prescription Opioid Use kb Signatures: Dispatcher [employer] EDMS Xiao Amezquita, HIRA-C HIRA-Caio Bar MD MD kdr Doucette, Kyli, RN RN kd3 Liss Bradshaw RN RN ke1
[2021-09-04 00:51] VITALS: O2SAT 100
[2021-09-04 00:56] VITALS: BP 132/74; TEMP 99.9
--- NOTE | 2021-09-04 08:53 | EKG ---
Test Date: 2021-09-03 Test Time: 23:33:24 Roofer: TRELL MEASUREMENT RESULTS: Intervals: Rate: 66 SC: 160 QRSD: 90 QT: 392 QTc: 410 [place]: P: 64 SC: 160 QRS: 22 T: 54 INTERPRETIVE STATEMENTS: Normal sinus rhythm Normal ECG Compared to ECG 01/06/2020 13:52:20 No significant changes Electronically Signed On 09-04-21 08:51:59 CDT by Jose R Pena
--- NOTE | 2021-09-04 14:14 | RAD REPORT ---
EXAM DESCRIPTION: RAD - Chest Single View - 09/03/2021 11:21 pm CLINICAL HISTORY: CHEST PAIN. COMPARISON: None. TECHNIQUE: Single view AP chest radiograph(s). FINDINGS: The lungs are clear. No pulmonary infiltrate or edema identified. No pleural effusion. N o pneumothorax. Nonenlarged cardiomediastinal silhouette. No significant osseous abnormality. IMPRESSION: No acute cardiopulmonary abnormality identified by radiograph. Electronically signed by: Rosamaria Griffith MD 09/03/2021 11:47 PM CDT Due to temporary technical issues with the PACS/Fluency reporting system, reports are being signed by the in house radiologists without. review as a courtesy to insure prompt reporting. The interpreting radiologist is fully responsible for the content of the report
== END 2021-09-04 00:45 | disposition home or self-care (01) ==
LOC: ER 22:16
DX: U07.1 COVID-19 (principal); R10.10 Upper abdominal pain, unspecified; I10 Essential (primary) hypertension
CPT/HCPCS: 71045; 93005

== ENCOUNTER 2021-09-05 03:26 | Emergency (ER) | payer BC ==
[2021-09-05] MEDS ORDERED: LORAZEPAM 1 MG TABLET ONE (04:15)
[2021-09-05] MEDS ORDERED: FAMOTIDINE 20 MG TAB ONE (04:16)
[2021-09-05 04:33] LABS: Absolute Lymphocytes (CBC) 1.2 K/uL (0.7-4.9); Hematocrit 37.7 % (36.0-45.0); Lymphocytes % 21.5 % (15.3-44.8); MPV 6.9 fL (7.6-11.3); RBC Red Blood Cell Count 4.65 M/uL (3.86-4.86)
[2021-09-05 05:02] LABS: Albumin 3.6 g/dL (3.4-5.0); Bilirubin Total 0.4 mg/dL (0.2-1.0); Potassium 3.1 mmol/L (3.5-5.1); Protein, Total 7.7 g/dL (6.4-8.2); Troponin High Sensitivity 15.6 pg/mL (<58.9)
--- NOTE | 2021-09-05 05:45 | ER ---
Nurse's Notes [facility] Name: Pippa Cardona Age: 60 yrs Sex: Female : 1960 Arrival Date: 09/05/2021 Time: 03:30 Bed 15 Private MD: Diagnosis: Abdominal pain, Generalized;Anxiety disorder, unspecified Presentation: 09/05 03:42 Chief complaint: Patient states: I went to [facility] on Friday and got tested for COVID. on kd3 Friday I got the result and I was positive. on Friday night, I came here because I had a stomach ache and some heartburn after I ate some soup. I never had issues before I got COVID. when I left here, my stomach ache went away "after I calmed down". now my stomach ache is back. and i have a dry mouth and i can't sleep well. Coronavirus screen: Vaccine status: Patient reports receiving the 2nd dose of the covid vaccine. Ebola Screen: No symptoms or risks identified at this time. Initial Sepsis Screen: Does the patient meet any 2 criteria? No. Patient's initial sepsis screen is negative. Does the patient have a suspected source of infection? No. Patient's initial sepsis screen is negative. Risk Assessment: Do you want to hurt yourself or someone else? Patient reports no desire to harm self or others. Onset of symptoms was August 2021. 03:42 Method Of Arrival: Ambulatory kd3 03:42 Acuity: ZOEY 3 kd3 Triage Assessment: 03:46 General: Appears in no apparent distress. Behavior is calm, cooperative. Pain: kd3 Complains of pain in epigastric area. GI: Reports upper abdominal pain. Historical: - Allergies: 03:46 No Known Allergies; ke1 - Home Meds: 03:46 lisinopril Oral [Active]; kd3 - PMHx: 03:46 Hypertension; kd3 - Immunization history:: Adult Immunizations up to date, Client reports receiving the 2nd dose of the Covid vaccine. - Social history:: Smoking status: unknown. Screenin:46 Abuse screen: Denies threats or abuse. Denies injuries from another. Nutritional kd3 screening: No deficits noted. Tuberculosis screening: No symptoms or risk factors identified. Fall Risk None identified. Assessment: 03:50 General: Appears uncomfortable, Behavior is appropriate for age. Pain: Complains of ke1 pain in abdomen and epigastric area Pain currently is 8 out of 10 on a pain scale. Neuro: Level of Consciousness is awake, alert, Oriented to person, place, time, situation. Respiratory: Respiratory effort is even, unlabored, Respiratory pattern is regular, symmetrical. GI: No deficits noted. Bowel sounds present X 4 quads. Abdomen is tender to palpation in abdomen and epigastric area. 04:58 Reassessment: Patient appears in no apparent distress at this time. Patient and/or ke1 family updated on plan of care and expected duration. Pain level reassessed. Vital Signs: 03:42 BP 114 / 79; Pulse 73; Resp 18; Temp 98.5; Pulse Ox 100% on R/A; Weight 92.53 kg; kd3 Height 5 ft. 3 in. (160.02 cm); 03:42 Body Mass Index 36.14 (92.53 kg, 160.02 cm) kd3 ED Course: 03:30 Patient arrived in ED. bp1 03:40 Caio Estrada MD is Attending Physician. kdr 03:46 Triage completed. kd3 03:46 Arm band placed on right wrist. kd3 03:46 Patient has correct armband on for positive identification. kd3 04:05 Liss Bradshaw, DANIELITO is Primary Nurse. ke1 04:22 Inserted saline lock: 20 gauge in right antecubital area, using aseptic technique. ke1 05:45 No provider procedures requiring assistance completed. IV discontinued. ke1 Administered Medications: 04:22 Drug: Ativan (LORazepam) 1 mg Route: PO; ke1 04:59 Follow up: Response: No adverse reaction ke1 04:22 Drug: Pepcid (famotidine) 20 mg Route: PO; ke1 04:59 Follow up: Response: No adverse reaction ke1 Medication: 03:47 VIS not applicable for this client. kd3 Outcome: 05:44 Discharge ordered by . kdr 05:45 Discharged to home ambulatory. ke1 05:45 Condition: good 05:45 Discharge instructions given to patient. 05:51 Patient left the ED. ke1 Signatures: Caio Estrada MD MD kdr Tricia Marroquin bp1 Kirstin Soni RN RN kd3 Ebrottie, Kouassi, RN RN ke1
--- NOTE | 2021-09-05 05:45 | EDPHYS ---
Physician Documentation [facility] Name: Pippa Cardona Age: 60 yrs Sex: Female : 1960 Arrival Date: 09/05/2021 Time: 03:30 Bed 15 Private MD: ED Physician Caio Estrada HPI: 09/05 05:11 This 60 yrs old Black Female presents to ER via Ambulatory with complaints of Abdominal kdr Pain. 05:11 The patient presents with abdominal pain in the epigastric area, in the upper abdomen. kdr Onset: The symptoms/episode began/occurred last week. The symptoms do not radiate. Associated signs and symptoms: none. The symptoms are described as achy, burning, intermittent, vague. Modifying factors: The symptoms are alleviated by nothing, the symptoms are aggravated by emotional upset. Severity of pain: At its worst the pain was mild in the emergency department the pain is unchanged. The patient has experienced similar episodes in the past, a few times. The patient has not recently seen a physician. Historical: - Allergies: 03:46 No Known Allergies; ke1 - Home Meds: 03:46 lisinopril Oral [Active]; kd3 - PMHx: 03:46 Hypertension; kd3 - Immunization history:: Adult Immunizations up to date, Client reports receiving the 2nd dose of the Covid vaccine. - Social history:: Smoking status: unknown. ROS: 05:11 Constitutional: Negative for fever, chills, and weight loss, Eyes: Negative for injury, kdr pain, redness, and discharge, Neck: Negative for injury, pain, and swelling, Cardiovascular: Negative for chest pain, palpitations, and edema, Respiratory: Negative for shortness of breath, cough, wheezing, and pleuritic chest pain, Back: Negative for injury and pain, : Negative for injury, bleeding, discharge, and swelling, MS/Extremity: Negative for injury and deformity, Skin: Negative for injury, rash, and discoloration, Neuro: Negative for headache, weakness, numbness, tingling, and seizure activity. Psych: Negative for depression, anxiety, suicide ideation, homicidal ideation, and hallucinations, Allergy/Immunology: Negative for hives, rash, and allergies, Endocrine: Negative for neck swelling, polydipsia, polyuria, polyphagia, and marked weight changes, Hematologic/Lymphatic: Negative for swollen nodes, abnormal bleeding, and unusual bruising. 05:11 Abdomen/GI: Positive for abdominal pain, nausea, Negative for vomiting, diarrhea, constipation, abdominal cramps, abdominal distension, anorexia, dysphagia, hematemesis, black/tarry stool, rectal pain, rectal bleeding, bowel incontinence. Exam: 05:11 Constitutional: This is a well developed, well nourished patient who is awake, alert, kdr and in no acute distress. Head/Face: Normocephalic, atraumatic. Eyes: Pupils equal round and reactive to light, extra-ocular motions intact. Lids and lashes normal. Conjunctiva and sclera are non-icteric and not injected. Cornea within normal limits. Periorbital areas with no swelling, redness, or edema. Neck: Trachea midline, no thyromegaly or masses palpated, and no cervical lymphadenopathy. Supple, full range of motion without nuchal rigidity, or vertebral point tenderness. No Meningismus. Chest/axilla: Normal chest wall appearance and motion. Nontender with no deformity. No lesions are appreciated. Cardiovascular: Regular rate and rhythm with a normal S1 and S2. No gallops, murmurs, or rubs. Normal PMI, no JVD. No pulse deficits. Respiratory: Lungs have equal breath sounds bilaterally, clear to auscultation and percussion. No rales, rhonchi or wheezes noted. No increased work of breathing, no retractions or nasal flaring. Abdomen/GI: Soft, non-tender, with normal bowel sounds. No distension or tympany. No guarding or rebound. No evidence of tenderness throughout. Back: No spinal tenderness. No costovertebral tenderness. Full range of motion. Skin: Warm, dry with normal turgor. Normal color with no rashes, no lesions, and no evidence of cellulitis. MS/ Extremity: Pulses equal, no cyanosis. Neurovascular intact. Full, normal range of motion. Neuro: Awake and alert, GCS 15, oriented to person, place, time, and situation. Cranial nerves II-XII grossly intact. Motor strength 5/5 in all extremities. Sensory grossly intact. Cerebellar exam normal. Normal gait. 05:11 Psych: Behavior/mood is pleasant, cooperative, Affect is flat, Oriented to person, place, time, Patient has no thoughts/intents to harm self or others. Judgement / Insight is normal. Delusions/hallucinations are not present. Vital Signs: 03:42 BP 114 / 79; Pulse 73; Resp 18; Temp 98.5; Pulse Ox 100% on R/A; Weight 92.53 kg; kd3 Height 5 ft. 3 in. (160.02 cm); 03:42 Body Mass Index 36.14 (92.53 kg, 160.02 cm) kd3 MDM: 05:11 Data reviewed: vital signs, nurses notes, lab test result(s), radiologic studies. kdr Counseling: I had a detailed discussion with the patient and/or guardian regarding: the historical points, exam findings, and any diagnostic results supporting the discharge/admit diagnosis, lab results, the need for outpatient follow up. 05:44 Patient medically screened. kdr 09/05 03:40 Order name: CBC with Diff; Complete Time: 05:35 kdr 09/05 03:40 Order name: CMP; Complete Time: 05:35 kdr 09/05 03:40 Order name: Lipase; Complete Time: 05:35 kdr 09/05 03:40 Order name: Troponin High Sensitivity; Complete Time: 05:35 kdr 09/05 03:40 Order name: IV Saline Lock; Complete Time: 04:22 kdr 09/05 03:40 Order name: Labs collected and sent; Complete Time: 04:23 kdr Administered Medications: 04:22 Drug: Ativan (LORazepam) 1 mg Route: PO; ke1 04:59 Follow up: Response: No adverse reaction ke1 04:22 Drug: Pepcid (famotidine) 20 mg Route: PO; ke1 04:59 Follow up: Response: No adverse reaction ke1 Disposition Summary: 09/05/21 05:44 Discharge Ordered Location: Home kdr Problem: new kdr Symptoms: have improved kdr Condition: Stable kdr Diagnosis - Abdominal pain, Generalized kdr - Anxiety disorder, unspecified kdr Followup: kdr - With: Private Physician - When: 2 - 3 days - Reason: If symptoms return, Further diagnostic work-up, Recheck today's complaints, Continuance of care, Re-evaluation by your physician Discharge Instructions: - Discharge Summary Sheet kdr - Abdominal Pain, Adult, [id number] kdr - Generalized Anxiety Disorder, Adult kdr Forms: - Medication Reconciliation Form kdr - Thank You Letter kdr Prescriptions: - Ativan 1 mg Oral Tablet - take 1 tablet by ORAL route once daily As needed As needed for anxiety only; 10 kdr tablet; Refills: 0, Product Selection Permitted - Pepcid 20 mg Oral Tablet - take 1 tablet by ORAL route once daily for 10 days; 10 tablet; Refills: 0, kdr Product Selection Permitted Signatures: Dispatcher [employer] Caio Duncan MD MD kdr Doucette, Kyli RN RN kd3 Liss Bradshaw RN RN ke1
[2021-09-05 06:20] VITALS: BP 114/79; TEMP 98.5; O2SAT 100
== END 2021-09-05 05:51 | disposition home or self-care (01) ==
LOC: ER 03:26
DX: R10.84 Generalized abdominal pain (principal); F41.9 Anxiety disorder, unspecified; I10 Essential (primary) hypertension
CPT/HCPCS: 36415; 80053; 83690; 84484; 85025